=== PATIENT | female | born 1990 | race African-American/Black ===

== ENCOUNTER 2018-02-16 02:19 | Emergency (ER) | payer BC ==
[~2018-02-16] VITALS: Ht 160 cm; Wt 82.5 kg
[2018-02-16 02:25] VITALS: BP 133/75; PULSE 99; RESP 32; TEMP 99.2; O2SAT 100
[2018-02-16] MEDS ORDERED: SODIUM CHLOR 0.9% 1000 ML INJ 1,000 ML IV SCH (02:45)
[2018-02-16] MEDS ORDERED: RESP: ALBUTEROL 2.5 MG/IPRATROPIUM 0.5 MG NEB (SCH) INH ONE (02:45)
[2018-02-16] MEDS ORDERED: DULO1CAP PO (02:50)
[2018-02-16 03:05] VITALS: PULSE 94; RESP 20; O2SAT 100
[2018-02-16 03:11] VITALS: PULSE 89; RESP 20; O2SAT 99
[2018-02-16 03:14] LABS: AUTOMATED NEUTROPHIL # 2.8 TH/MM3 (1.8-7.7); BASOPHIL % 0.8 % (0.0-2.0); EOSINOPHIL % 0.8 % (0.0-4.0); HEMATOCRIT 38.5 % (35.0-46.0); LYMPH % 30.2 % (9.0-44.0); LYMPHOCYTE # 1.5 TH/MM3 (1.0-4.8); MEAN CELL VOLUME 94.7 FL (80.0-100.0); MEAN CORPUSCULAR HEMOGLOBIN 31.9 PG (27.0-34.0); MEAN CORPUSCULAR HGB CONC 33.7 % (32.0-36.0); MEAN PLATELET VOLUME 8.3 FL (7.0-11.0); MONO % 13.5 % (0.0-8.0); MONOCYTE # 0.7 TH/MM3 (0-0.9); NEUT % 54.7 % (16.0-70.0); PLATELET COUNT 223 TH/MM3 (150-450); RED BLOOD COUNT 4.07 MIL/MM3 (4.00-5.30); RED CELL DISTRIBUTION WIDTH 12.7 % (11.6-17.2)
--- NOTE | 2018-02-16 03:16 | PD ---
HPI Chief Complaint: Respiratory Symptoms Time Seen by Provider: 02:38 Travel History International Travel<30 days: No Contact w/Intl Traveler<30days: No Traveled to known affect area: No History of Present Illness HPI 27-year-old female presents to the emergency department for complaint of sudden onset shortness of breath approximately 15 minutes prior to arrival to the emergency department. Patient states she was resting and just started to notice sudden shortness of breath. Patient denies history of pleuritic chest pain. Patient has been traveling to [facility] back and forth to [place] recently. Patient did receive Depo-Provera injection 3 months ago. Patient has history of lupus. Patient's had no recent febrile illness or cough. Patient's noted some mild wheezing. Patient denies personal history of asthma reactive airways disease bronchitis or pneumonia. Patient's had no lower extremity pain or swelling. No personal history or family history of clotting disorder. PFSH Past Medical History Narrative Medical lupus; no tobacco use; nursing notes reviewed Autoimmune Disease: Yes (lupus) Fibromyalgia: Yes ?: Not LMP: 3 MONTHS AGO. ON DEPO Social History Alcohol Use: No Tobacco Use: No Substance Use: No Allergies-Medications (Allergen,Severity, Reaction): Coded Allergies: No Known Allergies (Unverified , 02/16/18) Reported Meds & Prescriptions Reported Meds & Active Scripts Active Proventil Hfa 6.7 GM Inh (Albuterol Sulfate) 90 Mcg/Act Aer 2 Puff INH Q4-6H PRN Reported Duloxetine DR (Duloxetine HCl) 20 Mg Capdr 20 Mg PO TID Review of Systems Except as stated in HPI: all other systems reviewed are Neg General / Constitutional: No: Fever, Chills HENT: No: Sore Throat, Congestion Cardiovascular: No: Chest Pain or Discomfort Respiratory: Positive: Shortness of Breath, Wheezing, No: Cough, Orthopnea, Stridor, Pleuritic Pain Gastrointestinal: No: Nausea, Vomiting Genitourinary: No: Dysuria Skin: No Rash Neurologic: No: Weakness Psychiatric: No: Anxiety Hematologic/Lymphatic: No: Lymph Node Enlargement Physical Exam Narrative GENERAL: Well-developed well-nourished female no acute distress no respiratory distress SKIN: Warm and dry. HEAD: Normocephalic. EYES: No scleral icterus. No injection or drainage. NECK: Supple, trachea midline. No JVD or lymphadenopathy. CARDIOVASCULAR: Regular rate and rhythm without murmurs, gallops, or rubs. RESPIRATORY: Breath sounds equal bilaterally. No accessory muscle use. GASTROINTESTINAL: Abdomen soft, non-tender, nondistended. MUSCULOSKELETAL: No cyanosis, or edema. BACK: Nontender without obvious deformity. No CVA tenderness. Data Data Last Documented VS Vital Signs Date Time Temp Pulse Resp B/P (MAP) Pulse Ox O2 Delivery O2 Flow Rate FiO2 02/16/18 03:13 99 Room Air 02/16/18 03:11 89 20 02/16/18 02:25 99.2 133/75 (94) Orders Orders Complete Blood Count With Diff (02/16/18 02:38) Basic Metabolic Panel (Bmp) (02/16/18 02:38) B-Type Natriuretic Peptide (02/16/18 02:38) D-Dimer (02/16/18 02:38) Troponin I (02/16/18 02:38) Iv Access Insert/Monitor (02/16/18 02:38) Electrocardiogram (02/16/18 02:38) Ecg Monitoring (02/16/18 02:38) Oximetry (02/16/18 02:38) Chest, Single Ap (02/16/18 02:38) Albuterol-Ipratropium Neb (Duoneb Neb) (02/16/18 02:45) Sodium Chlor 0.9% 1000 Ml Inj (Ns 1000 M (02/16/18 02:45) Lactic Acid (02/16/18 02:38) Ed Urine Pregnancytest Poc (02/16/18 02:38) Urinalysis - C+S If Indicated (02/16/18 04:09) Ed Discharge Order (02/16/18 04:39) Labs Laboratory Tests Test 02/16/18 03:00 02/16/18 04:10 White Blood Count 5.0 TH/MM3 Red Blood Count 4.07 MIL/MM3 Hemoglobin 13.0 GM/DL Hematocrit 38.5 % Mean Corpuscular Volume 94.7 FL Mean Corpuscular Hemoglobin 31.9 PG Mean Corpuscular Hemoglobin Concent 33.7 % Red Cell Distribution Width 12.7 % Platelet Count 223 TH/MM3 Mean Platelet Volume 8.3 FL Neutrophils (%) (Auto) 54.7 % Lymphocytes (%) (Auto) 30.2 % Monocytes (%) (Auto) 13.5 % Eosinophils (%) (Auto) 0.8 % Basophils (%) (Auto) 0.8 % Neutrophils # (Auto) 2.8 TH/MM3 Lymphocytes # (Auto) 1.5 TH/MM3 Monocytes # (Auto) 0.7 TH/MM3 Eosinophils # (Auto) 0.0 TH/MM3 Basophils # (Auto) 0.0 TH/MM3 CBC Comment DIFF FINAL Differential Comment D-Dimer Quantitative (PE/DVT) 0.48 MG/L FEU Blood Urea Nitrogen 10 MG/DL Creatinine 0.60 MG/DL Random Glucose 86 MG/DL Calcium Level 8.9 MG/DL Sodium Level 136 MEQ/L Potassium Level 3.5 MEQ/L Chloride Level 107 MEQ/L Carbon Dioxide Level 23.4 MEQ/L Anion Gap 6 MEQ/L Estimat Glomerular Filtration Rate 146 ML/MIN Lactic Acid Level 1.8 mmol/L Troponin I LESS THAN 0.02 NG/ML B-Type Natriuretic Peptide LESS THAN 2 PG/ML Urine Collection Type CLEAN CATCH Urine Color YELLOW Urine Turbidity CLEAR Urine pH 6.0 Urine Specific [place] 1.025 Urine Protein NEG mg/dL Urine Glucose (UA) NEG mg/dL Urine Ketones NEG mg/dL Urine Occult Blood NEG Urine Nitrite NEG Urine Bilirubin NEG Urine Urobilinogen 0.2 MG/DL Urine Leukocyte Esterase NEG Urine WBC 0-2 /hpf Urine Squamous Epithelial Cells 0-5 /hpf Urine Mucus OCC /lpf Microscopic Urinalysis Comment CULT NOT INDICATED MDM Medical Decision Making Medical Screen Exam Complete: Yes Emergency Medical Condition: Yes Medical Record Reviewed: Yes Interpretation(s) EKG: Normal sinus rhythm rate [address] elevation or injury pattern or ectopy noted CBC & BMP Diagram 02/16/18 03:00 Calcium Level 8.9 Last Impressions Chest X-Ray 02/16/18 0238 Signed Impressions: Service Date/Time: Friday, February 16, 2018 02:51 - CONCLUSION: No acute disease. Alex Joaquin MD Vital Signs Date Time Temp Pulse Resp B/P (MAP) Pulse Ox O2 Delivery O2 Flow Rate FiO2 02/16/18 03:13 99 Room Air 02/16/18 03:11 89 20 99 02/16/18 03:05 94 20 100 Room Air 02/16/18 02:25 99.2 99 32 133/75 (94) 100 Troponin I: Less than 0.02, not elevated Lactic acid: 1.8, not elevated D-dimer: 0.48, not elevated bnp: less than 2, not elevated UA: wnl poc hcg: negative Differential Diagnosis Dyspnea, reactive airways disease, aspiration, pneumonia, PE, pneumothorax Narrative Course Patient placed on monitor IV access obtained specimens collected and sent for resulting patient administer DuoNeb updraft 1 chest x-ray ordered [id number] hCG negative Chest x-ray no lobar infiltrate or effusion or pneumothorax Patient comfortably resting after updraft treatment 1 labs pending Lab values found to be grossly normal range d-dimer is not elevated BNP is not elevated chest x-ray reveals no acute process EKG is normal basic metabolic panel and CBC are within normal range test is negative and lactic acid is not elevated; vital signs have normalized; patient has received a bolus of normal saline and is stable for outpatient management per Sepsis Criteria SIRS Criteria (2 or more): Heart rate over 90, RR > 20 or PaCO2 < 32 Diagnosis Primary Impression: Dyspnea, unspecified Qualified Codes: R06.00 - Dyspnea, unspecified Referrals: Primary Care Physician call for appointment Patient Instructions: General Instructions Additional Instructions: Increase fluid hydration Follow-up with your primary care provider Use inhaler as prescribed as needed Return the emergency department for any concerns or change in condition Med/Other Pt SpecificInfo: Prescription(s) given Scripts Albuterol 6.7 GM Inh (Proventil Hfa 6.7 GM Inh) 90 Mcg/Act Aer 2 PUFF INH Q4-6H Y for SHORTNESS OF BREATH, #1 INHALER 0 Refills Prov: Fifi Bernard MD 02/16/18 Disposition: DISCHARGE HOME Condition: Stable Fifi Bernard MD Feb 16, 2018 03:16
--- NOTE | 2018-02-16 03:19 | RADRPT ---
EXAM DATE/TIME: 02/16/2018 02:51 [facility] COMPARISON: No previous studies available for comparison. INDICATIONS : Shortness of breath. MEDICAL HISTORY : Lupus. SURGICAL HISTORY : None. ENCOUNTER: Initial ACUITY: 1 day PAIN SCORE: 0/10 LOCATION: Bilateral chest FINDINGS: A single view of the chest demonstrates the lungs to be symmetrically aerated without evidence of mas s, infiltrate or effusion. The cardiomediastinal contours are unremarkable. Osseous structures are intact. CONCLUSION: No acute disease. Alex Joaquin MD on February 16, 2018 at 3:17 Board Certified Radiologist. This report was verified electronically.
[2018-02-16 03:30] LABS: CHLORIDE 107 MEQ/L (98-107); SODIUM (NA) 136 MEQ/L (136-145)
[2018-02-16 03:32] LABS: CALCIUM 8.9 MG/DL (8.5-10.1)
[2018-02-16 03:33] LABS: BICARBONATE 23.4 MEQ/L (21.0-32.0); BLOOD UREA NITROGEN 10 MG/DL (7-18); GLUCOSE,RANDOM 86 MG/DL (74-106)
[2018-02-16 03:36] LABS: GLOMERULAR FILTRATION RATE 146 ML/MIN (>89)
[2018-02-16 03:41] LABS: TROPONIN I LESS THAN 0.02 NG/ML (0.02-0.05)
[2018-02-16 04:05] VITALS: BP 116/73; PULSE 78; RESP 16; O2SAT 100
[2018-02-16 04:16] LABS: BILIRUBIN, URINE NEG (NEG); BLOOD, URINE NEG (NEG); GLUCOSE,URINE NEG (NEG); KETONE, URINE NEG (NEG); NITRITE,URINE NEG (NEG); URINE COLOR YELLOW (YELLW/STRAW); URINE LEUKOCYTE ESTERASE NEG (NEG)
[2018-02-16] MEDS ORDERED: ALBU6.7H INH (04:27)
[2018-02-16 04:40] LABS: MUCUS URINE OCC /lpf (OCC); SQUAMOUS EPITHELIAL CELL URINE 0-5 /hpf (0-5); WBC, URINE 0-2 /hpf (0-5)
[2018-02-16 05:16] VITALS: BP 127/72
--- NOTE | 2018-02-16 05:21 | EKG ---
Date Performed: 02/16/2018 Time Performed: 03:55:08 PTAGE: 27 years EKG: Sinus rhythm NONSPECIFIC T-WAVE ABNORMALITY BORDERLINE ECG NO PREVIOUS TRACING DOCTOR: Renny Navarro Interpretating Date/Time 02/16/2018 05:19:07
== END 2018-02-16 05:19 | disposition home or self-care (01) ==
LOC: PHED 02:19
DX: R06.02 Shortness of breath (principal)
CPT/HCPCS: 71045; 80048; 81001; 83605; 83880; 84484; 84703; 85025; 85379; 93005; 94664; 96360; 96361; 99285; J7030